=== PATIENT | male | born 1955 | race Caucasian/White ===

== ENCOUNTER 2020-05-06 08:15 | Outpatient (REF) | payer MEDICARE, OTHER, SELFPAY ==
--- NOTE | 2020-05-06 15:38 | MHC.AU.P13 ---
Adult Audiological Evaluation Date of Visit: 05/06/20 Reason for Appointment: Audiological evaluation due to concern for decreased hearing. Mr. Razo reports difficulty hearing and understanding speech when in a large group or in background noise. He notes that he doesn't always hear his if she is not facing him. He also feels that he needs to turn the TV louder than others. Does patient feel they have a hearing loss?: Yes If Yes, Which Ear?: Both Ears Has hearing been tested previously?: Yes Previous Hearing Test Results: Previously had testing done at his place of employment, but does not have records. Hearing Handicap Inventory: HHIE SCORE: 16 Based on HHIE score, patient has: Mild to moderate perceived hearing handicap Ear History: Family History of Hearing Loss?: Yes: father Bothersome Tinnitus/Ringing/Noises in Ears: Yes, occasionally Blocked/Full Sensation in Ear(s): Yes, occasionally History of noise exposure?: No: high school marching band, loud music Medical History: Medical History: Diabetes, High Blood Pressure, Measles, Mumps Medical History: [place] Palsy (2003), Facial nerve inflammation causing double vision (2016), seasonal allergies Medication List: Simvastatin 80 mg, atenolol 50 mg, Glipizide ER 5 mg, Triam/HCTZ 37.5-25 mg, Fenofibrate 150 mg, Metformin ER 750 mg, Allopurinol 300 mg, Aspirin 81 mg, Fish oil Otoscopy: Right Ear: Unremarkable Left Ear: Unremarkable Tympanometry: Tympanometry performed due to: History of allergies/congestion Right Ear: Normal Middle Ear System (Type A) Left Ear: Normal Middle Ear System (Type A) Hearing Evaluation: Transducer(s) Used: Insert Earphones, Bone Conduction Method: Conventional Audiometry Stimuli Used: Pure Tones Right Ear: Description of Hearing: Normal hearing 250-1000 Hz, sloping to a mild sensorineural hearing loss from 0260-0726 Hz. Left Ear: Description of Hearing: Normal hearing 250-500 Hz, sloping to a mild sensorineural hearing loss from 6490-9394 Hz, rising to normal hearing at 6000 Hz, and sloping to a moderate hearing loss at 8000 Hz. Speech Recognition Threshold (SRT): Method Used: Monitored Live Voice Stimuli Used: Spondee Words Right Ear: 30 dBHL Left Ear: 25 dBHL Word Discrimination: Method: Recorded Lists Word Lists Used: NU-6 Right Ear: 96% at 70 dBHL Left Ear: 100% at 70 dBHL QuickSIN: 2 dB SNR loss indicates ability to understand speech in the presence of background noise is within normal. Recommendations: Audiological re-evaluation in one year. Amplification is not warranted at this time. Discussed communication strategies and devices to use with the TV (i.e. TV Ears, bluetooth headphones). Diagnosis: Primary Diagnosis: H90.3 Bilateral Sensorineural Hearing Loss Signature: Provider: Katie Davalos, CCC-A
== END 2020-05-06 08:16 | disposition home or self-care (01) ==
LOC: HO.SH 08:15
PROVIDERS: Visit Provider Family Medicine
DX: H90.3 Sensorineural hearing loss, bilateral (principal)
CPT/HCPCS: 92557; 92567; 92700

== ENCOUNTER 2023-02-25 08:33 | Outpatient (REF) | payer MEDICARE, OTHER, SELFPAY | END 2023-02-25 08:34 | disposition home or self-care (01) | LOC: HO.SH 08:33 | PROVIDERS: Visit Provider Nurse Practitioner Primary Care | DX: Z01.118 Encounter for examination of ears and hearing with other abnormal findings (principal); H90.3 Sensorineural hearing loss, bilateral | CPT/HCPCS: 92557; 92567 ==